=== PATIENT | male | born 1935 | race Caucasian/White ===

== ENCOUNTER → 2017-04-13 | Day surgery (SDC) | payer MEDICARE, BC ==
[~2017-04-13] MED LIST: ASPI81TA11 PO; BUPIVACAINE HCL PF 0.75% 30 ML VIAL ONE; COEN400C PO; DIPH25CA PO; FOLI1TAB6 PO; HUMALOG SQ; LACTCAP8 PO; LANTINJ SQ; LEVO88TA2 PO; LOSA50TA PO; MULTTAB22 PO; PRAV10TA PO; PROPOFOL 200 MG/20 ML AMP IV ONE; RANI150T PO; REST0.05 EACH EYE; TRIAMCINOLONE ACETONIDE 40 MG/ML VIAL I-ARTICULR ONE
--- NOTE | 2017-04-17 11:01 | M6 ---
cc: PEGGY CARTER M.D. DATE 04/13/2017 DATE OF 1935 PROCEDURE Fluoroscopically guided injection bilateral lumbar facet joints (bilateral L3-4, L4-5 and L5-S1 facet joints). History and physical was completed and signed. Consent was signed. Procedure site was marked. Medications were listed and reconciled. Pain score was recorded. Allergies were noted. Time out was taken. Fluoroscopy time was recorded where applicable. Sedation was administered or directed by Dr. Carter. The patient was given oxygen. The patient was monitored by a registered nurse. Total procedure time was greater than 15 minutes. PROCEDURE NOTE IV was started. Blood pressure cuff, pulse oximeter and EKG were applied. The patient was placed in the prone position on a Al table, sedated with small amounts of propofol titrated to effect. Vital signs were monitored and remained stable throughout the procedure. The lumbar area was prepped with alcohol and 10% Betadine solution and draped with sterile drapes. Fluoroscopy was used in a Anjel dog view to clearly visualize the bilateral lumbar facet joints at L3-4, L4-5 and L5-S1. Separate sterile 3-1/2-inch, 25-gauge spinal needles were advanced into these joints under fluoroscopic guidance. There was negative aspiration for blood or any other type of fluid and at each location the patient was given 1 mL of Marcaine 0.75% which contained 10 mg of Kenalog. Following the procedure the patient was taken to the recovery room with stable vital signs, neurologically intact. He will be evaluated immediately and with followup to determine if he has a subjective decrease in his usual pain and a corresponding objective increase his functional capabilities. WPuma Carter MD [facility]/YESSENIA /9:21 AM /11:00 AM
== END | disposition home or self-care (01) ==
LOC: PHSDC 07:13
PROVIDERS: ATTEND Pain Medicine Interventional Pain Medicine
DX: M54.5 Low back pain (principal)
CPT/HCPCS: 64493; 64494; 64495; 99152; J3301

== ENCOUNTER → 2017-05-11 | Day surgery (SDC) | payer MEDICARE, BC ==
[~2017-05-11] MED LIST changes: -BUPIVACAINE HCL PF 0.75% 30 ML VIAL ONE; +EXTRTAB5 PO; +FEXO15TA PO; +LIDOCAINE HCL 1% PF 30 ML VIAL INFIL ONE; +LIFI1DRO EACH EYE; +MEPERIDINE HCL 50 MG/ML VIAL IV ONE; +MIDAZOLAM HCL 2 MG/2 ML VIAL IV ONE; +SODIUM CHLORIDE 0.9% 10 ML VIAL ONE; -TRIAMCINOLONE ACETONIDE 40 MG/ML VIAL I-ARTICULR ONE; +methylPREDNISolone ACETATE 40 MG/ML VIAL I-ARTICULR ONE
--- NOTE | 2017-05-13 20:26 | M6 ---
cc: Casa CARTER DATE 05/11/2017 1935 PROCEDURE Radiofrequency rhizotomy multiple bilateral lumbar facet joints (bilateral L3-4, L4-5 and L5-S1 facet joints) PREPROCEDURE NOTE On 03/2017 we performed fluoroscopically guided injection of Mr. Gentile's bilateral lumbar facet joints at L3-4, L4-5 and L5-S1. He was evaluated immediately and with followup to determine if he had a subjective decrease in his usual pain and a corresponding objective increase in his functional capabilities. The patient reported approximately 85% relief of his usual back pain for several for several weeks. Now his pain has started to return back to baseline and we have recommended radiofrequency ablation of his bilateral lumbar facet joints in hopes of obtaining more prolonged relief. History and physical was completed and signed. Consent was signed. Procedure site was marked. Medications were listed and reconciled. Pain score was recorded. Allergies were noted. Time out was taken. Fluoroscopy time was recorded where applicable. Sedation was administered or directed by Dr. Carter. The patient was given oxygen. The patient was monitored by a registered nurse. Total procedure time was greater than 15 minutes. Radiofrequency rhizotomy multiple bilateral L3-4, L4-5 and L5-S1 facet joints. Three levels are being done because imaging studies show arthritis in all lumbar facet joints and because each facet joint is innervated by the medial branches from the nerves above and below that particular joint. The patient reported 50% or greater pain relief from previous diagnostic facet joint blocks done with fluoroscopic guidance. PROCEDURE An IV was started, blood pressure cuff, pulse oximeter and EKG were applied. The patient was placed in the prone position on a Al table, sedated with small amounts of Versed and fentanyl and propofol titrated to effect. Vital signs were monitored and remained stable throughout the procedure. The lumbar area was scrubbed with antimicrobial solution, prepped with 10% Betadine solution, draped with sterile drapes. Fluoroscopy was used in a slightly oblique angle (Anjel dog view) to clearly visualize the target areas which were the cephalad most medial angle of the transverse processes as they met the pedicle in the anatomical location of the medial branch of the posterior primary ramus on the __ side at __ levels and the angle of the __ sacral ala. The skin was infiltrated with 1% Xylocaine using a 27 gauge needle. An insulated 20 gauge radiofrequency needle with a 10 mm curved tip was advanced to the above-mentioned target areas. Fluoroscopy was used to confirm the needle was properly placed and not near the nerve root. At no time did the patient report any paresthesias down the lower extremity. Once properly positioned thermal lesions took place at 80 degrees Centigrade x 100 seconds at each location. Then, a small amount of Depo-Medrol was injected at each location for a total of 40 mg of Depo-Medrol. Following this the patient was taken to the recovery room with stable vital signs, neurologically intact. W. MD RAVINDER Smith/ /8:19 AM /8:16 PM
== END | disposition home or self-care (01) ==
LOC: PHSDC 06:40
PROVIDERS: ATTEND Pain Medicine Interventional Pain Medicine
DX: M54.5 Low back pain (principal)
CPT/HCPCS: 64635; 64636; 99152; 99153; J1030; J2175; J2250

== ENCOUNTER → 2017-06-27 | Day surgery (SDC) | payer MEDICARE, BC ==
[~2017-06-27] MED LIST changes: -DIPH25CA PO; +LIDOCAINE HCL 1% 30 ML VIAL NERV BLOCK ONE; -LIDOCAINE HCL 1% PF 30 ML VIAL INFIL ONE; -MEPERIDINE HCL 50 MG/ML VIAL IV ONE; -MIDAZOLAM HCL 2 MG/2 ML VIAL IV ONE; -PROPOFOL 200 MG/20 ML AMP IV ONE; -REST0.05 EACH EYE; -methylPREDNISolone ACETATE 40 MG/ML VIAL I-ARTICULR ONE; +methylPREDNISolone ACETATE 80 MG/ML VIAL ONE
--- NOTE | 2017-06-27 11:14 | M6 ---
cc: PEGGY CARTER M.D. DATE: 06/27/2017 DATE OF : 1935 PROCEDURE Fluoroscopically guided L5-S1 interlaminar epidural steroid injection. History and physical was completed and signed. Consent was signed. Procedure site was marked. Medications were listed and reconciled. Pain score was recorded. Allergies were noted. Time out was taken. Fluoroscopy time was recorded where applicable. Sedation was administered or directed by Dr. Carter. The patient was given oxygen. The patient was monitored by a registered nurse. Total procedure time was greater than 15 minutes. IV was started, blood pressure cuff, pulse oximeter and EKG were applied. The patient was placed in the prone position on a Al table sedated with small amounts of propofol titrated to effect. Vital signs were monitored and remained stable throughout the procedure. The lumbar area was prepped with alcohol and 10% Betadine solution and draped with sterile drapes. Fluoroscopy was used to visualize the L5-S1 interlaminar space. The skin was infiltrated with 1% Xylocaine using a 27 gauge needle then a 3-1/2-inch 18-gauge Tadeo needle was advanced using fluoroscopic guidance and the yanr-[id number] technique into the epidural space at L5-S1 slightly to the right of the midline. There was negative aspiration for blood or any other type of fluid and the patient was given 10 mL of half percent Xylocaine 80 mg of Depo-Medrol. Following the procedure the patient was taken to the recovery room with stable vital signs neurologically intact. W. MD RAVINDER Smith/jo-ann /8:29 AM /11:09 AM
== END | disposition home or self-care (01) ==
LOC: PHSDC 06:40
PROVIDERS: ATTEND Pain Medicine Interventional Pain Medicine
DX: M54.5 Low back pain (principal); I10 Essential (primary) hypertension; E11.9 Type 2 diabetes mellitus without complications; K21.9 Gastro-esophageal reflux disease without esophagitis; Z85.118 Personal history of other malignant neoplasm of bronchus and lung
CPT/HCPCS: 62323; J1040

== ENCOUNTER → 2018-01-18 | Day surgery (SDC) | payer MEDICARE, BC ==
[~2018-01-18] MED LIST changes: +APIX5TAB PO; -ASPI81TA11 PO; +ASPI81TA23 PO; -EXTRTAB5 PO; +LIDOCAINE HCL 1% 30 ML VIAL INFIL ONE; -LIDOCAINE HCL 1% 30 ML VIAL NERV BLOCK ONE; +MULT400T PO; +PHAR500T3 PO; -RANI150T PO; +REST0.05 EACH EYE; +TRIAMCINOLONE ACETONIDE 40 MG/ML VIAL NERV BLOCK ONE
--- NOTE | 2018-01-18 08:07 | M6 ---
cc: Casa Carter MD DATE: 01/18/2018 PROCEDURE: Fluoroscopically-guided L5-S1 interlaminar epidural steroid injection. History and physical was completed and signed. Consent was signed. Procedure site was marked. Medications were listed and reconciled. Pain score was recorded. Allergies were noted. Time out was taken. Fluoroscopy time was recorded where applicable. PROCEDURE NOTE: Blood pressure cuff, pulse oximeter and EKG were applied. The patient was placed in the prone position on a Al table. His back was prepped with alcohol and 10% Betadine solution, draped with sterile drapes. Fluoroscopy was used to visualize the L5-S1 interlaminar space. The skin was infiltrated with 1% Xylocaine, using a 27-gauge needle. Then, a 3-1/2 inch, 18-gauge Tadeo needle was advanced using fluoroscopic guidance of the loss of resistance technique into the epidural space at L5-S1, slightly to the right of the midline. There was negative aspiration for blood or any other type of fluid and the patient was given 10 mL of 0.5% Xylocaine and 80 mg of Depo-Medrol. Following this, the patient was taken to the recovery room with stable vital signs, neurologically intact. He will be evaluated immediately and with followup. Casa Carter MD [facility] , 07:49 AM , 08:06 AM
== END | disposition home or self-care (01) ==
LOC: PHSDC 06:16
PROVIDERS: ATTEND Pain Medicine Interventional Pain Medicine
DX: M54.5 Low back pain (principal)
CPT/HCPCS: 62323; J1040; J3301